=== PATIENT | male | born 1995 | race Caucasian/White ===

== ENCOUNTER 2017-03-08 17:30 | Emergency (ER) | payer BC ==
[2017-03-08 17:58] LABS: BASOPHIL# 0.1 X 10^3uL (0.0-0.1); BASOPHILS 1.3 % (0.0-2.0); EOSINOPHILS 2.3 % (0.0-6.0); EOSINOPHILS# 0.2 X 10^3uL (0.0-0.4); HEMATOCRIT 37.8 % (42.0-54.0); HEMOGLOBIN 12.6 g/dL (14.0-18.0); LYMPHOCYTES 18.9 % (20.0-40.0); LYMPHOCYTES# 1.9 X 10^3uL (0.8-3.8); MEAN CORPUS. HGB CONCENTRATION 33.4 g/dL (32.0-36.0); MEAN CORPUSCULAR HEMOGLOBIN 27.4 pg (29.0-35.0); MEAN PLATELET VOLUME 7.4 fL (7.4-10.4); MONOCYTES 13.1 % (2.0-10.0); MONOCYTES# 1.3 X 10^3uL (0.2-1.0); NEUTROPHILS 64.4 % (54.0-75.0); NEUTROPHILS# 6.7 X 10^3uL (2.6-6.7); PLATELET COUNT 486 X 10^3uL (130-440); RED CELL DISTRIBUTION WIDTH 13.9 % (11.5-14.5); WHITE BLOOD COUNT 10.2 X 10^3uL (3.9-10.7)
[2017-03-08 18:07] LABS: BLOOD UREA NITROGEN 14 mg/dL (9-20); CALCIUM 8.8 mg/dL (8.4-10.2); CHLORIDE 98 mmol/L (98-107); EST GLOMERULAR FILTRATION RATE > 60 mL/min; GLUCOSE 94 mg/dL (70-100); POTASSIUM 3.8 mmol/L (3.5-5.1); SODIUM 137 mmol/L (137-145)
[2017-03-08] MEDS ORDERED: ACETAMINOPHEN 325 MG TABLET PO ONE (18:56)
[2017-03-08] MEDS ORDERED: ONDANSETRON ODT PREPAC 4 MG TAB.RAPDIS PO ONE (19:01)
--- NOTE | 2017-03-08 19:18 | RADIOLOGY REPORT ---
HISTORY: Chest pain and shortness of breath. TECHNIQUE: PA and lateral views of the chest. COMPARISON: None. FINDINGS: Right middle lobe consolidation is present. There is mild airspace opacification within the right low er lobe. No pleural effusion or pneumothorax is identified. The right heart border is obscured by the opacified right middle lobe, but the heart and mediastinal silhouette are grossly normal. The osseous structures are unremarkable. IMPRESSION: Complete consolidation of the right middle lobe. Partial opacification of the right lower lobe. Final Electronic Signature: This report was electronically signed by Neri Moy MD on 03/08/2017 7:16 PM. [email or web address] /
--- NOTE | 2017-03-08 20:01 | CT REPORT ---
HISTORY: Shortness of breath COMPARISON: None. TECHNIQUE: This examination was performed using automated exposure control, adjustment of mA or kV according to patient size, and/or use of iterative reconstruction technique. Axial CT imaging from the thoracic i nlet through the upper abdomen following administration of IV contrast. 100cc Isovue 300 contrast. FINDINGS: Extremely large right anterior mediastinal mass measures 16.0 x 12.1 x 19.9 cm and shows extensive hy podense areas and irregular and linear foci of enhancement mostly peripherally. No calcifications are demonstrated. The mass compresses the right lung, with associated atelectasis. There is also ladarius israel of the right atrium. There is no pericardial or pleural effusion. No pulmonary nodules are demonstrated. The chest wall ap pears intact and imaged portions of the upper abdomen are unremarkable. 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 Compressive atelectasis of the right lung, including the right middle lob e. This report was personally discussed with Dr. Goins on 03/08/2017 at 7:58 PM. Final Electronic Signature: This report was electronically signed by Jordan Huff MD on 03/08/2017 7:59 PM. debra /
[2017-03-08 20:02] LABS: ALKALINE PHOSPHATASE 85 U/L (38-126); ALT 37 U/L (21-72); AST 41 U/L (17-59); BILIRUBIN, DIRECT 0.3 mg/dL (0.0-0.4); BILIRUBIN, TOTAL 0.8 mg/dL (0.2-1.3); LIPASE 59 U/L (23-300); TOTAL PROTEIN 8.2 g/dL (6.3-8.2)
[2017-03-08 20:03] LABS: C-REACTIVE PROTEIN > 90.0 mg/L (<10.0)
--- NOTE | 2017-03-08 20:21 | ER PHYSICIAN DOCUMENTATION ---
Physician Documentation [facility] Name:Zev Dubose Age:21 yrs Sex:Male :1995 Arrival Date:03/08/2017 Time:17:30 Bed4 Private MD: Jaylon Hernandez Disposition: 03/08 18:40 Critical Care: not applicable. cd 20:10 Chart complete. cd Disposition: 03/08/17 20:10 Discharged to Home/Self Care. 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 - Condition is Fair. - Discharge Instructions: Anemia, Hemolytic - ANEMIA, Type Not Specified (Adult), Cancer - TUMOR, Uncertain Cause. - Medical Reconciliation form form. - Follow up: Private Physician; When: 1 - 2 days; Reason: Recheck today's complaints, Continuance of care. - Problem is new. - Symptoms have improved. 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 You will need close follow up by an Oncologist for treatment. Your anemia is due to the Mediastinal Tumor. Take Acetaminophen 500mg by mouth every 6 hours for 2 days... Zofran 4mg under your tongue every 6 hours as needed for nausea... Follow up with your physician in [place], [place] for referral to an Oncologist [facility] in the next 1 - 3 days for further evaluation and treatment. HPI: 17:45 This 21 yrs old Male presents to ER via Private Vehicle with complaints of cd cough, weakness, fatigue. 17:45 The patient has shortness of breath at rest, with light activity, and the patient has a cd history of Bronchitis dx'd one week ago. He was placed on Amoxicillin for the past 5 days and not improving. He [place],000 [place] with his family for vacation and has become progressively weaker, without energy, fatigued with exertion. He denies fever, chills, hemoptysis, night sweats or weight loss. He reports he has had this non-productive cough for about a month. He never had URI symptoms, fever, chills or sore throat. He denies Asthma, Lung disease. 17:45 Onset: The symptom(s)/episode began/occurred gradually, 30 day(s) ago, and became worse cd 5 day(s) ago, after arriving to this elevation. Duration: The symptoms are chronic, for 1 month(s), are continuous, and are steadily getting worse. The patient's shortness of breath is aggravated by exertion, is alleviated by nothing. Associated signs and symptoms: Pertinent positives: chest pain, non-productive cough, nausea, Pertinent negatives: productive cough, diaphoresis, dizziness, fever, hemoptysis, vomiting. Severity of symptoms: At their worst the symptoms were moderate in the emergency department the symptoms are unchanged. The patient has experienced similar episodes in the past, several times, but today's symptoms are worse. Historical: - Allergies: No known drug Allergies; - Home Meds: 1. None - PMHx: None; - PSHx: None; - Tetanus: < 10 years. - Ebola Screening: : Patient denies travel to an Ebola-affected area in the 21 days before illness onset. No symptoms or risks identified at this time. . - Immunization history: Flu Vaccine >1 year Unable to Obtain. - Social history: Smoking status: Patient states was never smoker of tobacco. ROS: 17:45 ENT: Negative for injury, pain, epistaxis and discharge. cd 17:45 Back: Negative for injury, pain or muscle spasms. cd : Negative for injury, bleeding, discharge, swelling, dysuria, frequency or urgency. 17:45 MS/Extremity: Negative for injury, deformity, edema, calf tenderness, pain or coldness. 17:45 Constitutional: Positive for poor PO intake, Negative for chills, fever. 17:45 Neck: Positive for pain at rest. 17:45 Cardiovascular: Positive for chest pain, Negative for edema, orthopnea, palpitations. 17:45 Respiratory: Positive for cough, dyspnea on exertion, shortness of breath, Negative for hemoptysis, orthopnea, pleurisy, sputum production, wheezing. 17:45 Abdomen/GI: Positive for nausea, anorexia, Negative for abdominal pain, vomiting, diarrhea, constipation, abdominal distension, hematemesis, black/tarry stool, rectal bleeding. 17:45 Skin: Positive for pallor, which the family says is unusual. 17:45 Neuro: Negative for altered mental status, headache, seizure activity, speech changes, syncope. 17:45 All other systems are negative. Exam: Eyes: Pupils equal round and reactive to light, extra-ocular motions intact. Lids and lashes normal. Conjunctiva and sclera are non-icteric and not injected. Cornea within normal limits. Periorbital areas with no swelling, redness, or edema. 18:00 ENT: Nares patent. No nasal discharge, no septal abnormalities noted. Tympanic cd membranes are normal and external auditory canals are clear. Oropharynx with no redness, swelling, or masses, exudates, or evidence of obstruction, uvula midline. Mucous membranes dry Abdomen/GI: Soft, non-tender, with normal bowel sounds. No distension or tympany. No guarding or rebound. No evidence of tenderness throughout. Back: No spinal tenderness. No costovertebral tenderness. Full range of motion. MS/ Extremity: Pulses equal, no cyanosis. Neurovascular intact. Full, normal range of motion. 18:00 Neuro: Awake and alert, GCS 15, oriented to person, place, time, and situation. Cranial nerves II-XII grossly intact. Motor strength 5/5 in all extremities. Sensory grossly intact. Cerebellar exam normal. Normal gait. 18:00 Constitutional: The patient appears alert, awake, non-diaphoretic, non-toxic, well developed, well nourished, listless, pale. 18:00 Head/face: Noted is pale. 18:00 Neck: External neck: tenderness, of the right trapezius, C-spine: vertebral tenderness, is not appreciated, ROM/movement: is normal. 18:00 Chest/axilla: Inspection: normal, Palpation: is normal. 18:00 Cardiovascular: Rate: normal, Rhythm: regular, Pulses: no pulse deficits are appreciated, Heart sounds: normal, Edema: is not appreciated. 18:00 Respiratory: the patient does not display signs of respiratory distress, Respirations: normal, no acute changes, Breath sounds: are normal, clear throughout, posteriorly. 18:00 Skin: Appearance: Color: pale. Vital Signs: 17:35 BP 122 / 70; Pulse 91; Resp 16; Temp 98.2(O); Pulse Ox 94% on R/A; Weight 56.7 kg (R); arc Height 5 ft. 9 in. (175.26 cm) (R); Pain 6/10; 18:52 BP 127 / 67; Pulse 76; Resp 16; Temp 99.4; Pulse Ox 95% on R/A; Pain 2/10; lc 20:20 BP 130 / 66; Pulse 84; Resp 18; Temp 98.7; Pulse Ox 95% on R/A; Pain 2/10; bw2 17:35 Body Mass Index 18.46 (56.70 kg, 175.26 cm) arc [place] Coma Score: 18:00 Eye Response: spontaneous(4). Verbal Response: oriented(5). Motor Response: obeys cd commands(6). Total: 15. MDM: 17:32 Patient medically screened. 17:40 Differential diagnosis: Anemia Bronchitis pneumonia, pulmonary edema, Pulmonary cd Embolism. Data interpreted: Pulse oximetry: on room air is 95 %. Interpretation: normal. 18:00 Antibiotic administration: Not indicated. Data reviewed: vital signs, nurses notes, old cd medical records, lab test result(s), radiologic studies, CT scan, plain films, and as a result, I will discharge patient, . The patient is stable for discharge and out-patient work-up of this Mediastinal Mass. 20:10 Counseling: I had a detailed discussion with the patient and/or guardian regarding: the cd historical points, exam findings, and any diagnostic results supporting the discharge/admit diagnosis, lab results, radiology results, the need for outpatient follow up, for definitive care, for a referral to a specialist, Oncology. Response to treatment: the patient's symptoms have mildly improved after treatment, the patient's condition has returned to base line, patient is well hydrated. and as a result, I will discharge patient. 03/08 18:10 Order name: BASIC METABOLIC PANEL; Complete Time: 18:29 EDTX 03/08 18:28 Interpretation: Normal. 03/08 18:10 Order name: CBC AUTO DIF, MDIF/RMOR IF IND; Complete Time: 18:29 EDTX 03/08 18:29 Interpretation: Normal Except: HEMOGLOBIN 12.6; HEMATOCRIT 37.8; PLATELET COUNT 486; cd Anemia, Thrombocytosis. 03/08 20:04 Order name: HEPATIC PANEL; Complete Time: 20:08 EDTX 03/08 20:08 Interpretation: Normal. 03/08 20:04 Order name: LIPASE; Complete Time: 20:08 EDTX 03/08 20:08 Interpretation: Normal. 03/08 20:04 Order name: C-REACTIVE PROTEIN; Complete Time: 20:08 EDTX 03/08 20:08 Interpretation: Abnormal: C-REACTIVE PROTEIN > 90.0; Elevated. cd 03/08 19:20 Order name: CXR 2V [id number]; Complete Time: 19:41 EDMS 03/08 19:33 Interpretation: Abnormal: Complete Right Middle Lobe Consolidation...? etiology...Will cd obtain a CT Scan of the chest; See Radiologist Note. 03/08 20:03 Order name: CAT SCAN; CHEST W/CON [id number]; Complete Time: 20:08 EDMS 03/10 18:10 Interpretation: Abnormal: Very large Mediastinal Mass, most likely a Germ Cell Tumor. cd Discussed with the Radiologist. I discussed the findings with the family. They will follow up with an Oncologist in [place], [place]. 03/08 17:40 Order name: Urine Dip; Complete Time: 18:47 cd Dispensed Medications: 18:00 Drug: NS 0.9% 1000 ml; Route: IV; Rate: bolus; Site: left hand; 18:47 Follow up: IV Status: Completed infusion; IV Intake: 1000ml 18:46 Drug: Acetaminophen 650 mg; Route: PO; 19:23 Follow up: Response: No adverse reaction bw2 18:55 Drug: Zofran 1 tablet; Route: PO; 19:23 Follow up: Response: Pharmacy closed - take home med pack bw2 Point of Care Testing: Urine Dip: 18:45 pH: 6.0; ; Specific [place]: 1.010; Ketones: Negative; Glucose: Negative; Protein: em3 Negative; Leukocytes: Negative; Nitrite: Negative ; Blood: Negative; Bilirubin: Negative ; Urobilinogen: Normal Signatures: Veronica Feliz RN RN lc Daley, Chris, MD MD Luba Catalanh bw2
--- NOTE | 2017-03-08 20:21 | ER NURSING DOCUMENTATION ---
Nurse's Notes 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 DX WITH BRONCHITIS lc LAST WEEK, ON AMOXICILLIN FOR. C/O SOB, WEAK, DIZZY, DECREASED APPETITE WITH NAUSEA, MOIST COUGH. Transition of care: patient was not received from another setting of care. Notified ED Physician of patient's arrival and CC. 17:36 Method Of Arrival: Private Vehicle lc Triage Assessment: 17:39 General: Appears ill, Behavior is appropriate for age, cooperative. Respiratory: Airway lc is patent Respiratory effort is even, unlabored, Respiratory pattern is symmetrical, Breath sounds are clear bilaterally. Reports shortness of breath cough that is persistent Onset: The symptoms/episode began/occurred gradually, the patient has moderate shortness of breath. GI: Abd is soft and non tender X 4 quads. 17:41 Derm: Skin is pale. lc Historical: - Allergies: No known drug Allergies; - Home Meds: 1. None - PMHx: None; - PSHx: None; - Tetanus: < 10 years. - Ebola Screening: : Patient denies travel to an Ebola-affected area in the 21 days before illness onset. No symptoms or risks identified at this time. . - Immunization history: Flu Vaccine >1 year Unable to Obtain. - Social history: Smoking status: Patient states was never smoker of tobacco. Screenin:42 Infectious Disease Risk None. Abuse screen: Denies threats or abuse. Denies injuries lc from another. Nutritional screening: No deficits noted. Assessment: 18:02 See Triage Assessment done by same RN. lc 18:02 Pain: Complains of pain in chest Pain At worst was 6 out of 10 on a pain scale. Quality lc of pain is described as dull, Pain began 2-3 days ago. Cardiovascular: Rhythm is regular. Vital Signs: 17:35 BP 122 / 70; Pulse 91; Resp 16; Temp 98.2(O); Pulse Ox 94% on R/A; Weight 56.7 kg (R); arc Height 5 ft. 9 in. (175.26 cm) (R); Pain 6/10; 18:52 BP 127 / 67; Pulse 76; Resp 16; Temp 99.4; Pulse Ox 95% on R/A; Pain 2/10; lc 20:20 BP 130 / 66; Pulse 84; Resp 18; Temp 98.7; Pulse Ox 95% on R/A; Pain 2/10; bw2 17:35 Body Mass Index 18.46 (56.70 kg, 175.26 cm) arc [place] Coma Score: 18:00 Eye Response: spontaneous(4). Verbal Response: oriented(5). Motor Response: obeys cd commands(6). Total: 15. ED Course: 17:30 Patient arrived in ED. em3 17:31 Veronica Feliz, CHRISTOPHER is Primary Nurse. lc 17:31 Triage completed. lc 17:32 Jaylon Goins MD is Attending Physician. cd 17:42 Valuables Remains with patient Patient has correct armband on for positive lc identification. Placed in gown. 18:01 Labs drawn. (by ED staff). Sent per order to lab. Inserted peripheral IV: 20 gauge in lc left and blood collected. 18:51 Patient moved to radiology. pm1 19:02 Patient moved back from radiology. dnn 19:[address] dnn 19:[address] back from [address]. pm1 Administered Medications: 18:00 Drug: NS 0.9% 1000 ml; Route: IV; Rate: bolus; Site: left hand; lc 18:47 Follow up: IV Status: Completed infusion; IV Intake: 1000ml lc 18:46 Drug: Acetaminophen 650 mg; Route: PO; lc 19:23 Follow up: Response: No adverse reaction bw2 18:55 Drug: Zofran 1 tablet; Route: PO; lc 19:23 Follow up: Response: Pharmacy closed - take home med pack bw2 Point of Care Testing: Urine Dip: 18:45 pH: 6.0; ; Specific [place]: 1.010; Ketones: Negative; Glucose: Negative; Protein: em3 Negative; Leukocytes: Negative; Nitrite: Negative ; Blood: Negative; Bilirubin: Negative ; Urobilinogen: Normal Intake: 18:47 IV: 1000ml; Total: 1000ml. lc Outcome: 18:41 Discharge ordered by . cd 20:10 Discharge ordered by . vanessa 20:20 Discharged to home ambulatory, with family. bw2 20:20 Condition: good 20:20 Discharge Assessment: Patient awake, alert and oriented x 3. No cognitive and/or functional deficits noted. Patient verbalized understanding of disposition instructions. 20:20 Discharge instructions given to patient, family, Parent Instructed on discharge instructions, follow up and referral plans. medication usage, Demonstrated understanding of instructions, medications. 20:21 Patient left the ED. [facility] 03/09 10:05 Discharge F/U Call: Spoke with: patient. Did your discharge instructions answer all lp of your questions? yes Have you made a f/u appointment? No. Signatures: Veronica Feliz RN RN Michelle Contreras RN RN lp Daley, Chris, MD MD cd McBride, Philisha pm1 Wilmer Ramos Eric em3 Laura Sarabia, Precious Sun bw2
== END 2017-03-08 20:21 | disposition home or self-care (01) ==
LOC: ER 17:30
DX: R22.2 Localized swelling, mass and lump, trunk (principal); D64.9 Anemia, unspecified; E86.0 Dehydration; R07.9 Chest pain, unspecified; R06.02 Shortness of breath; R05 Cough; R06.00 Dyspnea, unspecified; R11.0 Nausea; R53.83 Other fatigue; R23.1 Pallor; R53.1 Weakness
CPT/HCPCS: 71020; 71260; 80048; 80076; 83690; 85025; 86140; 96360; 99284